=== PATIENT | female | born 1950 | race Caucasian/White ===

== ENCOUNTER 2016-10-18 10:44 | Emergency (ER) | payer MEDICARE, OTHER ==
[~2016-10-18] VITALS: Ht 167.6 cm; Wt 54.4 kg
[~2016-10-18 10:44] MED LIST: CAL-MAG TABLET1 EACH PO; CALCIUM600 M1 PO; CARDIZEM60 MG ORAL; CLOMIPRAMINE HC50 MG PO; COQ1050 MG PO; COSOPT EYE DROP10 M1 OP; DYMISTA NASAL S23 GM NS; HYDROZINE PO; LIPITOR20 MG ORAL; LOVAZA1 GM ORAL; METOPROLOL TART50 M1 ORAL; PAXIL20 MG ORAL; PRADAXA150 MG ORAL; PSYLLIUM0.4 GM PO; REMERON30 MG ORAL; TRAZODONE HCL100 MG ORAL; XALANTAN BOTH EYES
[2016-10-18 10:45] VITALS: BP 104/63
[2016-10-18] MEDS ORDERED: MULTIPLE VITAM1 EAC5 PO (10:46)
[2016-10-18] MEDS ORDERED: CO Q-10100 M1 PO (10:53)
[2016-10-18] MEDS ORDERED: PRADAXA150 MG ORAL (10:53)
[2016-10-18] MEDS ORDERED: DYMISTA NASAL S23 GM NS (10:54)
[2016-10-18] MEDS ORDERED: COSOPT PF EYE1 EAC1 OP (10:56)
[2016-10-18] MEDS ORDERED: METAMUCIL1 PK1 ORAL (10:58)
[2016-10-18] MEDS ORDERED: Morphine Sulfate 2mg/ml Inj IVP ONE (11:00)
[2016-10-18 11:07] LABS: BASOPHILS % (AUTO) 0.8 % (0.0-2.0); LYMPHOCYTES % (AUTO) 25.4 % (20.0-45.0); MEAN CORPUSCULAR HEMOGLOBIN 33.2 PG (27.0-31.0); MEAN CORPUSCULAR HGB CONC 35.1 G/DL (32.0-36.0); MEAN CORPUSCULAR VOLUME 95 FL (80-99); MEAN PLATELET VOLUME 5.9 FL (6.5-10.1); MONOCYTES % (AUTO) 8.6 % (1.0-10.0); NEUTROPHILS % (AUTO) 62.2 % (45.0-75.0); PLATELET COUNT 290 K/UL (150-450); RED CELL DISTRIBUTION WIDTH 11.1 % (11.6-14.8); WHITE BLOOD COUNT 7.5 K/UL (4.8-10.8)
--- NOTE | 2016-10-18 11:12 | Emergency Room Report ---
History of Present Illness General Chief Complaint: Multiple Trauma/Fall Source: Patient, EMS Present Illness HPI 66YOF BIBEMS with head trauma s/p ?syncope on street. Patient was on way to Psych clinic for appointment, doesnt know what happened. EMS found on street, brought in. EMS did NOT call ER so we were unable to inform them of CT being down. Patient c/o severe headache. Denies pain to neck, chest, abdomen, extremities. On Pradaxa for known Atrial fib. Took Cardizem this morning. Allergies: Coded Allergies: PENICILLINS (Verified Allergy, Mild, Rash, 08/08/16) NIACIN (Verified Allergy, Unknown, 08/08/16) UNABLE TO ASSESS (Unverified , 10/18/16) Patient History Past Medical History: psych hx, other - Atrial fibn Past Surgical History: none Pertinent Family History: none Social History: Denies: alcohol use, drug use, smoking Now: No Immunizations: UTD Reviewed Nursing Documentation: PMH: Agreed, PSxH: Agreed Nursing Documentation-PMH History Of Psychiatric Problem: Yes Review of Systems All Other Systems: negative except mentioned in HPI Physical Exam Vital Signs Date Time Temp Pulse Resp B/P Pulse Ox O2 Delivery O2 Flow Rate FiO2 10/18/16 10:29 80 18 171/109 98 Room Air Sp02 EP Interpretation: reviewed, abnormal General Appearance: normal inspection, well appearing, no apparent distress, alert, GCS 15, non-toxic, other - Face covered in dried blood Head: normocephalic, other - Abrasion to right nostril. Multiple abrasions to lower right lip. TTp to right lower jaw. Eyes: bilateral eye EOMI, bilateral eye PERRL ENT: normal ENT inspection, hearing grossly normal, normal voice Neck: normal inspection, full range of motion, supple, no bony tend Respiratory: normal inspection, lungs clear, normal breath sounds, no respiratory distress, no retraction, no wheezing Cardiovascular #1: no edema, tachycardia, irregularly irregular Gastrointestinal: normal inspection, normal bowel sounds, non tender, soft, no guarding, no hernia Genitourinary: no CVA tenderness Musculoskeletal: normal inspection, back normal, normal range of motion, Janes' s Sign negative Neurologic: normal inspection, alert, oriented x3, responsive, beverage manager III-XII nml as tested, motor strength/tone normal, speech normal Psychiatric: normal inspection, judgement/insight normal, mood/affect normal Skin: normal inspection, normal color, no rash Medical Decision Making Diagnostic Impression: Primary Impression: Facial trauma Qualified Codes: S09.93XA - Unspecified injury of face, initial encounter Additional Impressions: Syncope Qualified Codes: R55 - Syncope and collapse Atrial fibrillation with tachycardic ventricular rate CARLO (acute kidney injury) ER Course Head trauma - On pradaxa - VS notable for tachycardia, 110-120, Atria fib. Normotensive, 104/63. - ECG is Atrial fib with RVR to 110. No acute ischemia - Right nasal contusion, lower lip laceration - No focal neuro deficits - C/o severe headache - High risk for ICH. - Our CT is down for maintenance. We calldd [facility] but estimate time for transport >1 hour. - Call placed to [facility] for higher level of care transport at 11pm for URGENT CT - BP is stable - will NOT give additional BP lowering med at this time. - Spoke to Trauma Surgeon DR Head at 1125am. Agrees patient needs transfer to [facility] ER for CT and further evaluation. Patient remains stable in ED C-Collar placed Labs: No leuks. H&H stable. SerumCr 1.2 Troponin 0. CXR: no acute trauma Analgesia effective, headache less severe EKG Diagnostic Results Rate: tachycardiac Rhythm: other - atrial fib ST Segments: no acute changes ASA given to the pt in ED: No Rhythm Strip Diag. Results EP Interpretation: other - Atrial fib Rate: 110 Rhythm: other - Multiple PVCs Chest X-Ray Diagnostic Results Chest X-Ray Ordered: Yes # of Views/Limited/Complete: 1 View Interpretation: no consolidation, no effusion, no pneumothorax, no acute cardiopulmonary disease Indication: Chest Pain Impression: No acute disease Date Electronically Signed: Oct 18, 2016 Interpreting ER Physician: Eri Last Vital Signs Date Time Temp Pulse Resp B/P Pulse Ox O2 Delivery O2 Flow Rate FiO2 10/18/16 10:29 80 18 171/109 98 Room Air Status: improved Disposition: ADMITTED INPATIENT Condition: Critical Referrals: NOT CHOSEN IPA/,REFERRING (PCP) DARLENE ASHER M.D. Oct 18, 2016 11:12
[2016-10-18 11:16] LABS: TROPONIN I < 0.30 ng/mL (<=0.30)
[2016-10-18 11:20] LABS: ALBUMIN/GLOBULIN RATIO 1.8 (1.0-2.7); CALCIUM 9.2 mg/dL (8.6-10.2); CREATININE 1.2 mg/dL (0.5-0.9); GLOMERULAR FILTRATION RATE 45.1 mL/min (>60); POTASSIUM 3.8 mEQ/L (3.4-4.9); TOTAL PROTEIN 6.6 g/dL (6.6-8.7)
[2016-10-18 11:30] VITALS: BP 99/61
--- NOTE | 2016-10-18 11:32 | Diagnostic Imaging Report ---
Indication: Chest pain Technique: Single portable AP view of the chest. Findings: Comparison: None. Aortic arch mildly calcified. The bones and extra pulmonary soft tissues, remainder of the cardiomediastinal silhouette, pulmonary vasculature and parenchyma, and pleural surfaces are unremarkable. IMPRESSION: Aortosclerosis Otherwise negative portable AP chest.
[2016-10-18 11:40] LABS: CKMB 2.4 ng/mL (< 3.8)
[2016-10-18 12:00] VITALS: BP 92/58
== END 2016-10-18 12:38 | disposition short-term general hospital (02) ==
LOC: EDBD 10:44 → EMR 11:01
DX: S00.31XA Abrasion of nose, initial encounter (principal); S00.511A Abrasion of lip, initial encounter; W19.XXXA Unspecified fall, initial encounter; Y92.410 Unspecified street and highway as the place of occurrence of the external cause; I48.91 Unspecified atrial fibrillation; N17.9 Acute kidney failure, unspecified; R51 Headache; R55 Syncope and collapse; Z88.0 Allergy status to penicillin; Z88.8 Allergy status to other drugs, medicaments and biological substances; Z79.01 Long term (current) use of anticoagulants; I70.0 Atherosclerosis of aorta
CPT/HCPCS: 36415; 71010; 80053; 82550; 82553; 82962; 84484; 85025; 93005; 99285; J2270

== ENCOUNTER 2016-12-07 18:27 | Inpatient (IN) | payer MEDICARE, OTHER ==
[~2016-12-07] VITALS: Ht 170.2 cm; Wt 63.5 kg
[~2016-12-07 18:27] MED LIST changes: +CO Q-10100 M1 PO; +COSOPT PF EYE1 EAC1 OP; +METAMUCIL1 PK1 ORAL; +MULTIPLE VITAM1 EAC5 PO
[2016-12-07 18:38] VITALS: BP 101/58
[2016-12-07] MEDS ORDERED: PRADAXA150 MG ORAL (18:46)
[2016-12-07] MEDS ORDERED: KLONOPIN0.5 MG ORAL (18:46)
[2016-12-07] MEDS ORDERED: TOPIRAMATE25 MG ORAL (18:46)
[2016-12-07] MEDS ORDERED: TRAZODONE HCL100 MG ORAL (18:46)
[2016-12-07] MEDS ORDERED: ESTRACE42.5 GM PV (18:46)
[2016-12-07] MEDS ORDERED: FIBER-CAPS625 MG PO (18:46)
[2016-12-07] MEDS ORDERED: CYMBALTA30 MG ORAL (18:46)
[2016-12-07] MEDS ORDERED: UBIQUINOL100 MG PO (18:46)
[2016-12-07] MEDS ORDERED: ZYPREXA2.5 MG ORAL (18:46)
[2016-12-07] MEDS ORDERED: LATANOPROST2.5 ML BOTH EYES (18:46)
[2016-12-07] MEDS ORDERED: LOVAZA1 GM ORAL (18:46)
[2016-12-07] MEDS ORDERED: MELATONIN1 M2 PO (18:46)
--- NOTE | 2016-12-07 18:53 | Emergency Room Report ---
History of Present Illness General Chief Complaint: General Complaint Source: Patient, EMS Present Illness HPI Pt. presents with weakness and unsteadiness on her feet. She's fallen 2 days ago. She hit her chin on the right-hand side. She claims that she was evaluated at [facility] and given an ice pack and tranquilizers at that time. 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 The patient is chronically on medications and states that she's taking both Percocet and Allyn. She states Allyn does not help at this time. She was hospitalized at [facility] from last Saturday till till Saturday which is before the most recent fall. The patient is on pradaxa treating her for atrial fibrillation. She has had episodes of rapid a fib. Last here, she converted to NSR with diltiazem. No palpitations. Patient states that she is not seeing a pain management doctor. Review of records from [facility]. Admitted for same issue with MRI and psych consult. Zyprexa was added. Had been treated with clonazepam and cymbalta and these were continued. CT and MRI done at [facility]. Transgender post male to female surgery. Depression post this. Seen in outpatient psych at [facility]. Allergies: Coded Allergies: PENICILLINS (Verified Allergy, Mild, Rash, 08/08/16) NIACIN (Verified Allergy, Unknown, 08/08/16) Patient History Past Medical History: see triage record Past Surgical History: other - transgender male to female Social History: Denies: smoking Social History Narrative at home with dog Reviewed Nursing Documentation: PMH: Agreed, PSxH: Agreed Nursing Documentation-PM Past Medical History: No Stated History Hx Cardiac Problems: Yes - A-fib Hx Hypertension: Yes History Of Psychiatric Problem: Yes - anxiety Physical Exam Vital Signs Date Time Temp Pulse Resp B/P Pulse Ox O2 Delivery O2 Flow Rate FiO2 12/07/16 18:26 97.7 70 16 91/54 97 12/07/16 18:38 Room Air Medical Decision Making Diagnostic Impression: Primary Impression: Closed head injury Qualified Codes: S09.90XA - Unspecified injury of head, initial encounter Additional Impressions: Anticoagulation management encounter Depression Qualified Codes: F32.9 - Major depressive disorder, single episode, unspecified Polypharmacy ER Course Patient presents with weakness and unsteady gaits. The fact that she's on anticoagulation at this time she needs to have a CT head, EKG, labs and chest x- ray. She's on pain medication at this time and acetaminophen level needs to be checked as she is doubling on percoet and norco. She appears dehydrated and will receive IV hydration. This is an extremely complex patient who might require observation. The fact she is on Pradaxa makes observation more important as there is a possibility for bleed. Labs unremarkable (negative acetaminophen, tox - would expect + opiates and benzos) Based on CT difference with prior films at [facility], presented to [facility]. (Query fx, and air in cavernous sinus.) Discussed with Dr. Mueller, neurointensivist at [facility] who recommends observation. Feels not neurosurgical problem. Admit tele Dr. Clinton. Request consult with Dr. La.. Laboratory Tests Test 12/07/16 19:30 White Blood Count 5.1 K/UL (4.8-10.8) Red Blood Count 3.70 M/UL (4.20-5.40) L Hemoglobin 12.4 G/DL (12.0-16.0) Hematocrit 33.9 % (37.0-47.0) L Mean Corpuscular Volume 92 FL (80-99) Mean Corpuscular Hemoglobin 33.6 PG (27.0-31.0) H Mean Corpuscular Hemoglobin Concent 36.6 G/DL (32.0-36.0) H Red Cell Distribution Width 11.0 % (11.6-14.8) L Platelet Count 219 K/UL (150-450) Mean Platelet Volume 5.7 FL (6.5-10.1) L Neutrophils (%) (Auto) 54.3 % (45.0-75.0) Lymphocytes (%) (Auto) 32.0 % (20.0-45.0) Monocytes (%) (Auto) 9.5 % (1.0-10.0) Eosinophils (%) (Auto) 2.9 % (0.0-3.0) Basophils (%) (Auto) 1.3 % (0.0-2.0) Prothrombin Time 10.3 SEC (9.30-11.50) Prothrombin Time INR 1.0 (0.9-1.1) PTT 26 SEC (23-33) Urine Color Pale yellow Urine Appearance Slightly cloudy Urine pH 7 (4.5-8.0) Urine Specific [place] 1.015 (1.005-1.035) Urine Protein Negative (NEGATIVE) Urine Glucose (UA) Negative (NEGATIVE) Urine Ketones Negative (NEGATIVE) Urine Occult Blood Negative (NEGATIVE) Urine Nitrite Negative (NEGATIVE) Urine Bilirubin Negative (NEGATIVE) Urine Urobilinogen Normal MG/DL (0.0-1.0) Urine Leukocyte Esterase 1+ (NEGATIVE) H Urine RBC 0-2 /HPF (0 - 2) Urine WBC 2-4 /HPF (0 - 2) Urine Squamous Epithelial Cells Few /LPF (NONE/OCC) Urine Bacteria Few /HPF (NONE) Sodium Level 141 mEQ/L (135-145) Potassium Level 3.8 mEQ/L (3.4-4.9) Chloride Level 106 mEQ/L (98-107) Carbon Dioxide Level 27 mEQ/L (20-30) Anion Gap 8 (5-15) Blood Urea Nitrogen 13 mg/dL (7-23) Creatinine 1.0 mg/dL (0.5-0.9) H Estimate Glomerular Filtration Rate 55.7 mL/min (>60) Glucose Level 81 mg/dL (74-106) Calcium Level 8.7 mg/dL (8.6-10.2) Total Bilirubin 0.3 mg/dL (0.0-1.2) Aspartate Amino Transferase (AST) 21 U/L (5-40) Alanine Aminotransferase (ALT) 16 U/L (3-33) Alkaline Phosphatase 35 U/L (35-104) Total Creatine Kinase 50 U/L (26-140) Troponin I < 0.30 ng/mL (<=0.30) Total Protein 5.9 g/dL (6.6-8.7) L Albumin 3.7 g/dL (3.5-5.2) Globulin 2.2 g/dL Albumin/Globulin Ratio 1.6 (1.0-2.7) Urine Opiates Screen Negative (NEGATIVE) Acetaminophen Level < 10 ug/mL (10-30) L Urine Barbiturates Screen Negative (NEGATIVE) Phencyclidine (PCP) Screen Negative (NEGATIVE) Urine Amphetamines Screen Negative (NEGATIVE) Urine Benzodiazepines Screen Negative (NEGATIVE) Urine Cocaine Screen Negative (NEGATIVE) Urine Marijuana (THC) Screen Negative (NEGATIVE) EKG Diagnostic Results Rate: normal Rhythm: NSR ST Segments: no acute changes Rhythm Strip Diag. Results EP Interpretation: yes Rhythm: NSR, no PVC's, no ectopy Chest X-Ray Diagnostic Results Chest X-Ray Diagnostic Results : Chest X-Ray Ordered: Yes # of Views/Limited/Complete: 1 View Indication: Other EP Interpretation: Yes Interpretation: no consolidation, no effusion, no pneumothorax, no acute cardiopulmonary disease Impression: No acute disease Interpreting ER Provider: Electronically signed by Anthony Figueroa MD CT/MRI/US Diagnostic Results CT/MRI/US Diagnostic Results : Imaging Test Ordered: head Impression R frontal injury and air in cavernous sinus (felt to be from venipuncture). Last Vital Signs Date Time Temp Pulse Resp B/P Pulse Ox O2 Delivery O2 Flow Rate FiO2 12/08/16 01:35 97.0 55 18 108/83 97 Room Air Status: improved Disposition: ADMITTED INPATIENT Condition: Serious Anthony Figueroa M.D. Dec 07, 2016 18:53
[2016-12-07 20:08] LABS: BASOPHILS % (AUTO) 1.3 % (0.0-2.0); EOSINOPHILS % (AUTO) 2.9 % (0.0-3.0); MEAN CORPUSCULAR HEMOGLOBIN 33.6 PG (27.0-31.0); MEAN CORPUSCULAR HGB CONC 36.6 G/DL (32.0-36.0); MEAN CORPUSCULAR VOLUME 92 FL (80-99); MEAN PLATELET VOLUME 5.7 FL (6.5-10.1); MONOCYTES % (AUTO) 9.5 % (1.0-10.0); NEUTROPHILS % (AUTO) 54.3 % (45.0-75.0); PLATELET COUNT 219 K/UL (150-450); TROPONIN I < 0.30 ng/mL (<=0.30); WHITE BLOOD COUNT 5.1 K/UL (4.8-10.8)
[2016-12-07 20:11] LABS: ALANINE AMINOTRANSFERASE 16 U/L (3-33); ALBUMIN/GLOBULIN RATIO 1.6 (1.0-2.7); ANION GAP 8 (5-15); APPEARANCE,URINE SLIGHTLY CLOUDY; ASPARTATE AMINO TRANSFERASE 21 U/L (5-40); CALCIUM 8.7 mg/dL (8.6-10.2); CARBON DIOXIDE 27 mEQ/L (20-30); CHLORIDE 106 mEQ/L (98-107); GLOMERULAR FILTRATION RATE 55.7 mL/min (>60); HEMOLYSIS 6; KETONES,URINE NEGATIVE (NEGATIVE); LEUKOCYTE ESTERASE ,URINE 1+ (NEGATIVE); NITRITE,URINE NEGATIVE (NEGATIVE); PH,URINE 7 (4.5-8.0); POTASSIUM 3.8 mEQ/L (3.4-4.9); PROTEIN,URINE NEGATIVE (NEGATIVE); SODIUM 141 mEQ/L (135-145); TOTAL PROTEIN 5.9 g/dL (6.6-8.7); UROBILINOGEN,URINE NORMAL MG/DL (0.0-1.0)
[2016-12-07 20:13] LABS: PROTHROMBIN TIME 10.3 SEC (9.30-11.50)
[2016-12-07 20:38] VITALS: BP 125/65
[2016-12-07 20:45] LABS: BACTERIA,URINE FEW /HPF; RBC,URINE 0-2 /HPF (0 - 2); SQUAMOUS EPITHELIAL CELL,UR FEW /LPF (NONE/OCC)
[2016-12-07 22:38] VITALS: BP 108/61
[2016-12-08] VITALS (7 sets, daily range): BP systolic 108–144; BP diastolic 60–83
[2016-12-08] MEDS ORDERED: ATORVASTATIN CA20 MG ORAL (02:27)
[2016-12-08] MEDS ORDERED: Zolpidem 5mg tab ORAL PRN (04:00)
[2016-12-08] MEDS ORDERED: TOPROL XL50 MG ORAL (05:13)
[2016-12-08] MEDS: clonazePAM 0.5mg tab ORAL SCH ×2 (08:58→21:07)
[2016-12-08] MEDS: DULoxetine 30mg cap ORAL SCH ×2 (08:58→21:06)
[2016-12-08] MEDS: Multivitamin w/Minerals tab ORAL SCH ×2 (08:58→17:17)
[2016-12-08] MEDS: Tums 500mg ORAL SCH ×2 (08:59→17:17)
[2016-12-08] MEDS: Cosopt Opth Soln 10 mL Btl BOTH EYES SCH ×2 (08:59→21:26)
[2016-12-08] MEDS: Metamucil Pkt ORAL SCH ×2 (08:59→17:17)
[2016-12-08] MEDS ORDERED: Metoprolol Succinate XL 50mg tab ORAL SCH (09:00)
[2016-12-08] MEDS ORDERED: Metoprolol Tartrate 50mg tab ORAL SCH (09:00)
[2016-12-08] MEDS: Topiramate 25mg tab ORAL SCH ×2 (09:04→21:06)
--- NOTE | 2016-12-08 11:16 | Diagnostic Imaging Report ---
Indication: Headache. Head trauma Technique: Contiguous 5 mm thick transaxial imaging of the head obtained in a Siemens Sensation [address] scanner. Soft tissue and bone windows generated. Total Dose length Product (DLP): [address] Dose Index Volume (CTDIvol): 70.38 mGy Comparison: none Findings: There is mild prominence of the ventricles, basal cisterns, and cerebral sulci consistent with atrophy. Mild, nonspecific, white matter hypoattenuation is noted throughout the brain consistent with chronic small vessel disease. There is no midline shift, edema, acute hemorrhage, mass effect, or abnormal extra-axial fluid collections. There are bilateral fractures of the frontal process of maxillary bone. This could be old. Please correlate clinically. There appears to have been surgery involving the area of the frontal sinus. Impression: No acute intracranial bleed, mass effect or edema. Mild atrophy of the brain. Nonspecific white matter hypoattenuation probably due to chronic small vessel disease. Fractures of the frontal process of the maxilla. Acuity indeterminate. Status post previous left frontal sinus surgery The CT scanner at [facility] is accredited by the [employer] and the scans are performed using dose optimization techniques as appropriate to a performed exam including Automatic Exposure control.
--- NOTE | 2016-12-08 11:41 | Diagnostic Imaging Report ---
Indication: Dyspnea Comparison: 10/18/16 A single view chest radiograph was obtained. Findings: Heart size is normal. Lungs are clear. Bones are unremarkable. Impression: No acute findings
[2016-12-08] MEDS: OLANZapine 2.5mg tab ORAL PRN (11:53)
--- NOTE | 2016-12-08 13:49 | Neurology Progress Note ---
Objective Physical Exam Last Vital Signs Date Time Temp Pulse Resp B/P Pulse Ox O2 Delivery O2 Flow Rate FiO2 12/08/16 12:11 66 12/08/16 11:58 98.0 17 117/74 98 Room Air Laboratory Tests Test 12/07/16 19:30 White Blood Count 5.1 K/UL (4.8-10.8) Red Blood Count 3.70 M/UL (4.20-5.40) L Hemoglobin 12.4 G/DL (12.0-16.0) Hematocrit 33.9 % (37.0-47.0) L Mean Corpuscular Volume 92 FL (80-99) Mean Corpuscular Hemoglobin 33.6 PG (27.0-31.0) H Mean Corpuscular Hemoglobin Concent 36.6 G/DL (32.0-36.0) H Red Cell Distribution Width 11.0 % (11.6-14.8) L Platelet Count 219 K/UL (150-450) Mean Platelet Volume 5.7 FL (6.5-10.1) L Neutrophils (%) (Auto) 54.3 % (45.0-75.0) Lymphocytes (%) (Auto) 32.0 % (20.0-45.0) Monocytes (%) (Auto) 9.5 % (1.0-10.0) Eosinophils (%) (Auto) 2.9 % (0.0-3.0) Basophils (%) (Auto) 1.3 % (0.0-2.0) Prothrombin Time 10.3 SEC (9.30-11.50) Prothromb Time International Ratio 1.0 (0.9-1.1) Activated Partial Thromboplast Time 26 SEC (23-33) Urine Color Pale yellow Urine Appearance Slightly cloudy Urine pH 7 (4.5-8.0) Urine Specific [place] 1.015 (1.005-1.035) Urine Protein Negative (NEGATIVE) Urine Glucose (UA) Negative (NEGATIVE) Urine Ketones Negative (NEGATIVE) Urine Occult Blood Negative (NEGATIVE) Urine Nitrite Negative (NEGATIVE) Urine Bilirubin Negative (NEGATIVE) Urine Urobilinogen Normal MG/DL (0.0-1.0) Urine Leukocyte Esterase 1+ (NEGATIVE) H Urine RBC 0-2 /HPF (0 - 2) Urine WBC 2-4 /HPF (0 - 2) Urine Squamous Epithelial Cells Few /LPF (NONE/OCC) Urine Bacteria Few /HPF (NONE) Sodium Level 141 mEQ/L (135-145) Potassium Level 3.8 mEQ/L (3.4-4.9) Chloride Level 106 mEQ/L (98-107) Carbon Dioxide Level 27 mEQ/L (20-30) Anion Gap 8 (5-15) Blood Urea Nitrogen 13 mg/dL (7-23) Creatinine 1.0 mg/dL (0.5-0.9) H Estimat Glomerular Filtration Rate 55.7 mL/min (>60) Glucose Level 81 mg/dL (74-106) Calcium Level 8.7 mg/dL (8.6-10.2) Total Bilirubin 0.3 mg/dL (0.0-1.2) Aspartate Amino Transf (AST/SGOT) 21 U/L (5-40) Alanine Aminotransferase (ALT/SGPT) 16 U/L (3-33) Alkaline Phosphatase 35 U/L (35-104) Total Creatine Kinase 50 U/L (26-140) Troponin I < 0.30 ng/mL (<=0.30) Total Protein 5.9 g/dL (6.6-8.7) L Albumin 3.7 g/dL (3.5-5.2) Globulin 2.2 g/dL Albumin/Globulin Ratio 1.6 (1.0-2.7) Urine Opiates Screen Negative (NEGATIVE) Acetaminophen Level < 10 ug/mL (10-30) L Urine Barbiturates Screen Negative (NEGATIVE) Phencyclidine (PCP) Screen Negative (NEGATIVE) Urine Amphetamines Screen Negative (NEGATIVE) Urine Benzodiazepines Screen Negative (NEGATIVE) Urine Cocaine Screen Negative (NEGATIVE) Urine Marijuana (THC) Screen Negative (NEGATIVE) Impression/Recommendations Problems: (1) Transient global amnesia LALO ALEXANDER Dec 08, 2016 13:49
[2016-12-08] MEDS ORDERED: Norco 5mg/325mg tab ORAL PRN (14:45)
[2016-12-08] MEDS: Norco 5mg/325mg tab ORAL PRN (15:13)
[2016-12-08] MEDS: TraZODone 100mg tab ORAL SCH (21:16)
[2016-12-09] MEDS: Norco 5mg/325mg tab ORAL PRN ×5 (01:34→21:09)
--- NOTE | 2016-12-09 02:17 | Consultation ---
DATE OF CONSULTATION: 12/08/2016 NEUROLOGICAL CONSULTATION REQUESTING PHYSICIAN: Elias Clinton M.D. HISTORY OF PRESENT ILLNESS: This is a 66-year-old female, seen in neurological consultation to evaluate an episode of transient change in mental status. The patient informed me that yesterday she was at home, was feeling fairly well, took some medication "for her nerves" following which she had no recollection of what happened. She woke up being at [facility]. The patient indicated she apparently called [employer], who brought her to this facility. Upon awakening, she was surprised what happened, but was feeling fairly well as usual, still with mild headache and dizziness. The patient recalled having three similar episodes within the last few months, the most recent episode was couple of weeks ago. She recalled walking on the street, was losing her balance and falling down, but she has no recollection of what happened after that until she woke up at [facility]. According to available medical records, on 11/29/2016, she was brought in by paramedics from the street where bystanders noted for having difficulty ambulation, she was alert to herself, but confused about the year. Her gait described by people who knew her as "no more shaky." This appeared to be worsened. She was weak and paramedics noted some right facial droop. Her blood sugar was 145. There was no further neurological deficit detected. On initial evaluation at [facility], she was disoriented, did not know where she was, did not now what the month or year. She thought that she was in [place] and she had no idea how she got to the hospital and why she was there. Reportedly, her urine toxicology was negative. Her TSH, B12, folate, and vitamin D were normal. Her recent stress echocardiogram with no evidence of ischemia, but urine culture demonstrated growth of Enterococcus, which could have been contamination, but she was treated with Macrobid for 7 days. There was episode of atrial fibrillation, she received diltiazem 10 mg IV push with complete resolution. Reported MRI of the brain was negative. The patient was placed on her home dose of trazodone 300 mg at bedtime. She was on Topamax, Cymbalta increased up to 30 mg b.i.d., trial of Zyprexa was not effective and the patient was placed back on clonazepam 0.5 b.i.d. per Psychiatry recommendation. Gradually she improved and her encephalopathy was completely clear. Following current admission, CAT scan of the brain was obtained revealing mild atrophy of the brain, nonspecific white matter hypoattenuation, fracture of the frontal process of the maxilla, undetermined acuteness and previous left frontal sinus surgery. Her chest x-ray, no acute findings. Laboratory work included mild anemia, hemoglobin 12.4 and hematocrit 33.9. Elevated MCV and MCH. Normal coagulation panel. Normal urinalysis. Toxicology panel negative. Chemistry panel unremarkable except creatinine 1.0 and total protein 5.9. There was no further changes in level of consciousness since admission detected. Her vital signs remained stable. PAST MEDICAL HISTORY: The patient has extensive medical history. This includes history of migraine headaches. She is status post a gender reassignment surgery few years ago changing from male to female. History of drug-induced tardive dyskinesia, parkinsonian symptomatology, long-standing major depression, anxiety, recurrent atrial fibrillation, and hyperlipidemia. Her primary physician is Dr. Chester Mendoza. She is being seen by inpatient Psychiatry. MEDICATIONS: Treatment list prior to admission included atorvastatin, imipramine, Klonopin 0.5 b.i.d., Pradaxa, diltiazem, Cymbalta 30 mg b.i.d., , melatonin, metoprolol, Remeron 20 mg at bedtime, Zyprexa 2.5 mg q.6 h. p.r.n., omega-3, Paxil 10 mg daily, trazodone 250 mg daily, CoQ10. ALLERGIES: Penicillin, niacin. FAMILY HISTORY: Noncontributory. SOCIAL HISTORY: Worked previously as a publisher. Denies alcohol or drug abuse. Nonsmoker. FAMILY HISTORY: Noncontributory. REVIEW OF SYSTEMS: The patient complains of generalized weakness. She was feeling cough and dizzy, dull headaches. She is concerned with presence of amnestic episodes. She denies previous seizure activity. PHYSICAL EXAMINATION: GENERAL: This is a well-developed and well-nourished pleasant lady, who appears to be depressed. VITAL SIGNS: Her vital signs are now stable. Blood pressure 115/80, respirations 14, and temperature 98.1 degrees. HEENT: Head, normocephalic. There is no evidence of trauma. Eyes, ears, and throat are clear. NECK: Supple. No meningeal signs. MUSCULOSKELETAL: Unremarkable. No deformities. Peripheral pulses 1+ and symmetric. MENTAL STATUS: The patient is alert. She is fully oriented. Speech is fluent. Language intact. There is no aphasia. No apraxia. Her responses are slow. Mood depressed. CRANIAL NERVE II: Pupils both responding to light and accommodation. Extraocular movements intact. No nystagmus. CRANIAL NERVE V: Normal corneal responses. CRANIAL NERVE VII: No facial asymmetry. CRANIAL NERVE VIII: Normal hearing. CRANIAL NERVES IX THROUGH XII: Tongue is in midline. Symmetric palate elevation. MOTOR EXAMINATION: Revealed normal muscle tone. Strength is 5/5. Minor resting tremor noted. GAIT: Wobbly. IMPRESSION: 1. Recurrent amnestic episodes, most likely representing global transient amnesia. Rule out toxic encephalopathy secondary to polypharmacy, rule out dissociated state, rule out seizure disorder. 2. Major depression and anxiety. 3. Paroxysmal atrial fibrillation. 4. Hyperlipidemia. 5. History of tardive dyskinesia. RECOMMENDATION: 1. Check EEG. 2. Review all medications to hold unessential (the patient on several antidepressants), although the patient indicated that she feels much better when she takes [place]. 3. Re-evaluation by Psychiatry. 4. Observe for any paroxysmal events. 5. No driving. 6. The patient being prepared for transfer to [facility] for further assessment by her treating physician. Thank you for allowing me to see this interesting patient in neurological consultation. Kevin Rogers M.D. DR: JORGE JOB#: [id number] CC:
--- NOTE | 2016-12-09 03:16 | History and Physical Report ---
DATE OF ADMISSION: 12/07/2016 REASON FOR ADMISSION: Head injury. HISTORY OF PRESENT ILLNESS: This is a 66-year-old female who presented with weakness and tenderness in her feet. The patient had fallen two days ago. The patient apparently hit her chin on the right side. She was evaluated in the [facility] at that time and noted to have some ataxia. The patient is chronically on medications. She does take both Flexeril and [place] for pain relief. She was hospitalized at [facility] due to her recent fall. The patient also is on Pradaxa for her atrial fibrillation. The patient's care discussed and reviewed and she is now been admitted after head injury. The patient is currently comfortable and nonfocal. PAST MEDICAL HISTORY: As above. History of atrial fibrillation and anxiety. PAST SURGICAL HISTORY: Transgender male to female. MEDICATIONS: Reviewed. ALLERGIES: Reviewed. REVIEW OF SYSTEMS: Notable for chronic pain syndrome, chronic opioid use, status post fall as described above. PHYSICAL EXAMINATION: GENERAL: A well-developed female. VITAL SIGNS: Blood pressure 139/77, pulse 61, respirations 18, and saturation is 98%. The patient's temperature is 97. HEENT: Negative. Extraocular movements are grossly intact. Oropharynx otherwise clear. NECK: Supple. LUNGS: Otherwise clear. No rhonchi or wheezes. CARDIAC: Normal S1 and S2. Regular rate and rhythm without murmurs, rubs, or gallops. ABDOMEN: Soft, nontender, and nondistended. EXTREMITIES: No cyanosis, clubbing, or edema. NEUROLOGIC: The patient is grossly nonfocal. The patient with unsteady gait. LABORATORY DATA: Reviewed. White count 5.1, hemoglobin 12, hematocrit 33, and platelets are 219,000. Chemistry is fairly normal, all reviewed in detail. Imaging noted and apparently are otherwise unchanged. IMPRESSION: 1. Status post fall with head injury. 2. Ataxic gait. 3. Chronic opioid dependence. 4. Hypertension. 5. Atrial fibrillation per history paroxysmal. RECOMMENDATIONS: Supportive care. OT and PT. Neurosurgical evaluation. Monitor use of opioids at present. Discharge if clinically stable, able to go home and consider home health while on physical therapy. Elias Clinton M.D. DR: HILDA JOB#: [id number] CC: LEVON
[2016-12-09 03:52] VITALS: BP 102/59
[2016-12-09 07:12] LABS: BASOPHILS % (AUTO) 1.2 % (0.0-2.0); EOSINOPHILS % (AUTO) 3.7 % (0.0-3.0); LYMPHOCYTES % (AUTO) 34.1 % (20.0-45.0); MEAN CORPUSCULAR HEMOGLOBIN 32.7 PG (27.0-31.0); MEAN CORPUSCULAR HGB CONC 34.7 G/DL (32.0-36.0); MEAN CORPUSCULAR VOLUME 94 FL (80-99); MEAN PLATELET VOLUME 6.1 FL (6.5-10.1); MONOCYTES % (AUTO) 8.5 % (1.0-10.0); NEUTROPHILS % (AUTO) 52.5 % (45.0-75.0); PLATELET COUNT 224 K/UL (150-450); RED BLOOD COUNT 3.86 M/UL (4.20-5.40); RED CELL DISTRIBUTION WIDTH 10.7 % (11.6-14.8); WHITE BLOOD COUNT 6.4 K/UL (4.8-10.8)
[2016-12-09 07:18] LABS: THYROID STIMULATING HORMONE 1.95 uIU/mL (0.300-4.500)
[2016-12-09 07:19] LABS: ALBUMIN/GLOBULIN RATIO 1.8 (1.0-2.7); GLOMERULAR FILTRATION RATE 55.7 mL/min (>60); POTASSIUM 3.9 mEQ/L (3.4-4.9); TOTAL PROTEIN 5.6 g/dL (6.6-8.7)
[2016-12-09 07:29] VITALS: BP 131/78
--- NOTE | 2016-12-09 07:30 | Consultation ---
DATE OF CONSULTATION: 12/08/2016 CARDIOLOGY CONSULTATION: CONSULTING PHYSICIAN: Anthony Munguia M.D. REQUESTING PHYSICIAN: Elias Clinton M.D. REASON FOR CONSULTATION: Bradycardia. HISTORY OF PRESENT ILLNESS: This 66-year-old transgender female with a history of paroxysmal atrial fibrillation, has had episodes of bradyarrhythmias since admission late last evening. The patient states that she was admitted to the hospital after apparently passing out and having no recollection of the event. She has had several falls as well with associated loss of consciousness over the past month. She lost her balance and fell down on one occasion and has no recollection of falls on other occasion. She was hospitalized at [facility] in November with atrial fibrillation and started on antiarrhythmics. Her workup also included a stress echo that was negative. Her B12, folate, vitamin D, and TSH levels were normal and she has been on anticoagulation since the atrial fibrillation. PAST MEDICAL HISTORY: Transgender, glaucoma, migraines, depression, history of neuroleptic use with secondary dyskinesia and parkinsonism, paroxysmal atrial fibrillation, and hyperlipidemia. MEDICATIONS: Prior to admission, reviewed and reconciled. ALLERGIES: Penicillin and niacin. FAMILY HISTORY: Noncontributory. SOCIAL HISTORY: Negative for smoking, alcohol, or substance abuse. REVIEW OF SYSTEMS: A 10-point review of systems performed. All systems negative other than noted above. PHYSICAL EXAMINATION: GENERAL: Female in appearance, in no acute distress. VITAL SIGNS: Blood pressure is 115/80, heart rate 54, respiratory rate 14, and afebrile. Monitor reveals sinus arrhythmias and sinus bradycardia. HEENT: Conjunctivae are pink. Oropharynx is clear. NECK: Supple. . No carotid sinus hypersensitivity. LUNGS: Clear. CARDIAC: Regular rhythm and rate. Normal S1 and S2. ABDOMEN: Soft. EXTREMITIES: No edema. NEUROLOGIC: Symmetric strength. DIAGNOSTIC DATA: EKG, sinus arrhythmia. LABORATORY DATA: Laboratories reviewed. IMPRESSION: 1. Recurring falls, probable syncope. 2. Bradyarrhythmias. 3. Paroxysmal atrial fibrillation. 4. Hyperlipidemia. 5. History of major depression. 6. History of tardive dyskinesias. PLAN: 1. Discontinue diltiazem. 2. Titrate metoprolol. 3. Continue cardiac monitoring. 4. Seizure precautions. 5. Neuro consult reviewed. 6. Agree with EEG. 7. Continue cardioembolic prophylaxis at this time with Pradaxa. 8. Follow up chemistry panel and repeat thyroid function. Anthony Munguia M.D. DR: Gela JOB#: [id number] CC:
[2016-12-09] MEDS: Cosopt Opth Soln 10 mL Btl BOTH EYES SCH ×2 (08:11→20:23)
[2016-12-09] MEDS: DULoxetine 30mg cap ORAL SCH ×2 (08:11→20:18)
[2016-12-09] MEDS: Multivitamin w/Minerals tab ORAL SCH ×2 (08:11→17:53)
[2016-12-09] MEDS: Metamucil Pkt ORAL SCH ×2 (08:11→17:52)
[2016-12-09] MEDS: clonazePAM 0.5mg tab ORAL SCH ×2 (08:11→20:19)
[2016-12-09] MEDS: Tums 500mg ORAL SCH ×2 (08:14→17:53)
[2016-12-09] MEDS: Topiramate 25mg tab ORAL SCH ×2 (08:14→20:19)
--- NOTE | 2016-12-09 08:20 | General Progress Note ---
Assessment/Plan Assessment/Plan IMPRESSION: 1. Status post fall with head injury. 2. Ataxic gait. 3. Chronic opioid dependence. 4. Hypertension. 5. Atrial fibrillation per history paroxysmal. 6. amnestic episodes 7. possible toxic metabolic encephalopathy PLAN care as is EEG per cards, abby burton family wants transfer to [facility] under the Care of Dr. Arreaga, he is aware and will arrange impression, plan, and exam edited and reviewed in detail care discussed with RN Subjective Allergies: Coded Allergies: PENICILLINS (Verified Allergy, Mild, Rash, 12/08/16) NIACIN (Verified Allergy, Unknown, 12/08/16) Subjective neuro and cards appreciated findings noted appreciate follow up Objective Last 24 Hour Vital Signs Date Time Temp Pulse Resp B/P Pulse Ox O2 Delivery O2 Flow Rate FiO2 12/09/16 08:15 56 131/78 12/09/16 07:29 97.3 56 18 131/78 96 Room Air 12/09/16 04:00 54 12/09/16 03:52 98.8 57 18 102/59 93 Room Air 12/09/16 00:00 54 12/08/16 23:51 98.6 60 19 111/60 94 Room Air 12/08/16 20:13 48 12/08/16 19:59 98.2 58 18 108/65 96 Room Air 12/08/16 15:38 61 12/08/16 15:30 59 124/74 12/08/16 15:30 97.7 59 20 124/74 97 Room Air 12/08/16 12:11 66 12/08/16 11:58 98.0 58 17 117/74 98 Room Air 12/08/16 08:59 61 139/77 12/08/16 08:58 61 139/77 Intake and Output 12/08/16 12/09/16 19:00 07:00 Intake Total 1920 ml 1203 ml Output Total 800 ml Balance 1120 ml 1203 ml Intake Oral 560 ml IV Total 1360 ml 1203 ml Output Urine Total 800 ml # Voids 3 Laboratory Tests 12/09/16 05:15: White Blood Count 6.4, Red Blood Count 3.86L, Hemoglobin 12.6, Hematocrit 36.3L , Mean Corpuscular Volume 94, Mean Corpuscular Hemoglobin 32.7H, Mean Corpuscular Hemoglobin Concent 34.7, Red Cell Distribution Width 10.7L, Platelet Count 224, Mean Platelet Volume 6.1L, Neutrophils (%) (Auto) 52.5, Lymphocytes (%) (Auto) 34.1, Monocytes (%) (Auto) 8.5, Eosinophils (%) (Auto) 3.7H, Basophils (%) (Auto) 1.2, Sodium Level 141, Potassium Level 3.9, Chloride Level 108H, Carbon Dioxide Level 26, Anion Gap 7, Blood Urea Nitrogen 9, Creatinine 1.0H, Estimat Glomerular Filtration Rate 55.7, Glucose Level 94, Calcium Level 9.0, Total Bilirubin 0.3, Aspartate Amino Transf (AST/SGOT) 18, Alanine Aminotransferase (ALT/SGPT) 14, Alkaline Phosphatase 34L, Pro-B-Type Natriuretic Peptide 81, Total Protein 5.6L, Albumin 3.6, Globulin 2.0, Albumin/ Globulin Ratio 1.8, Thyroid Stimulating Hormone (TSH) 1.950 Height (Feet): 5 Height (Inches): 7.00 Weight (Pounds): 140 Objective GENERAL: A well-developed female. NAD, wants to go home HEENT: Negative. Extraocular movements are grossly intact. Oropharynx otherwise clear. NECK: Supple. LUNGS: Otherwise clear. No rhonchi or wheezes. CARDIAC: Normal S1 and S2. Regular rate and rhythm without murmurs, rubs, or gallops. ABDOMEN: Soft, nontender, and nondistended. EXTREMITIES: No cyanosis, clubbing, or edema. NEUROLOGIC: The patient is grossly nonfocal. The patient with unsteady gait. GUERA ANDREWS Dec 09, 2016 08:20
[2016-12-09] MEDS ORDERED: Zolpidem 5mg tab ORAL PRN (08:45)
[2016-12-09] MEDS ORDERED: Metoprolol Succinate XL 50mg tab ORAL SCH (09:00)
[2016-12-09] MEDS: Dabigatran 150mg cap ORAL SCH ×2 (10:27→20:18)
[2016-12-09 11:30] VITALS: BP 136/77
[2016-12-09 15:29] VITALS: BP 126/73
[2016-12-09] MEDS: Bisacodyl EC 5mg tab ORAL SCH (16:56)
--- NOTE | 2016-12-09 17:11 | Cardiology Report ---
APPROVED REPORT EXAM: Two-dimensional and M-mode echocardiogram with Doppler and color Doppler. INDICATION Bradycardia M-Mode DIMENSIONS IVSd0.7 (0.7-1.1cm)Left Atrium (MM)3.7 (1.6-4.0cm) LVDd4.2 (3.5-5.6cm)Aortic Root2.8 (2.0-3.7cm) PWd0.8 (0.7-1.1cm)Aortic Cusp Exc.1.6 (1.5-2.0cm) LVDs2.5 (2.5-4.0cm) PWs0.8 cm Normal left ventricular chamber size, systolic function and wall motion. Left ventricular ejection fraction estimated to be 60-65%. No evidence of left ventricular hypertrophy. No evidence of pericardial fat or effusion. All other cardiac chamber sizes are within normal limits. Focal aortic valve sclerosis with adequate cusp excursion Thickened mitral valve leaflets with normal excursion. Mitral annulus and aortic root calcification. Pulmonic valve not well visualized. Normal tricuspid valve structure. IVC is normal in size with physiologic collapse. A color flow and spectral Doppler study was performed and revealed: No aortic regurgitation. Trace mitral regurgitation. Left ventricular diastolic dysfunction grade 1. Mild tricuspid regurgitation. Tricuspid systolic velocities suggests peak right ventricular systolic pressure of 33 mmHg
--- NOTE | 2016-12-09 17:52 | Cardiology Report ---
APPROVED REPORT EKG Measurement Heart [id number] TN [id number] Normal sinus rhythm Septal infarct, age undetermined Abnormal ECG
[2016-12-09] MEDS ORDERED: Milk of Magnesia 30ml Ud ORAL PRN (18:00)
[2016-12-09 19:55] VITALS: BP 120/74
[2016-12-09] MEDS: TraZODone 100mg tab ORAL SCH (20:18)
[2016-12-09 23:57] VITALS: BP 106/61
--- NOTE | 2016-12-10 | Progress Note ---
DATE: 12/09/2016 CARDIOLOGY PROGRESS NOTE SUBJECTIVE: The patient still has headache with dizziness. She ambulated today without assist. Monitored rhythm sinus, sinus bradycardia, no pauses. Heart rate in the 50s and 60s. OBJECTIVE: VITAL SIGNS: Blood pressure 126/73, pulse 55, respirations 18, and afebrile. HEENT: Conjunctivae are pink. Oropharynx clear. NECK: Supple. LUNGS: Clear. CARDIAC: Regular rythm and rate. Normal S1 and S2 with a fourth heart sound. ABDOMEN: Soft and nontender. EXTREMITIES: No edema. IMPRESSION: 1. Recurring falls likely due to bradyarrhythmia, due to medication improved now off diltiazem. 2. Paroxysmal atrial fibrillation maintaining sinus rhythm. 3. Transgender from male to female. 4. History of hypertension. 5. Post concussion headache. 6. Laboratories notable for TSH of 1.9. Echocardiogram with normal ejection fraction, and no significant valvular disease. PLAN: 1. Decrease metoprolol to half current dose. 2. Remain off diltiazem. 3. Pradaxa for cardioembolic prophylaxis. 4. Fall precautions. 5. Outpatient physical and occupational therapy. 6. Stable from cardiovascular standpoint for outpatient care. Anthony Munguia M.D. DR: GRACE JOB#: [id number] CC:
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
[2016-12-10 03:55] VITALS: BP 113/78
[2016-12-10 08:00] VITALS: BP 119/70
--- NOTE | 2016-12-10 08:34 | General Progress Note ---
Assessment/Plan Assessment/Plan IMPRESSION: 1. Status post fall with head injury. 2. Ataxic gait. 3. Chronic opioid dependence. 4. Hypertension. 5. Atrial fibrillation per history paroxysmal. 6. amnestic episodes 7. possible toxic metabolic encephalopathy PLAN care as is EEG results pending per cards, abby burton family wants transfer to [facility] under the Care of Dr. Arreaga, he is aware and will arrange PT likely stable for dc by am impression, plan, and exam edited and reviewed in detail care discussed with RN Subjective Allergies: Coded Allergies: PENICILLINS (Verified Allergy, Mild, Rash, 12/08/16) NIACIN (Verified Allergy, Unknown, 12/08/16) Subjective neuro and cards noted findings noted appreciate follow up Objective Last 24 Hour Vital Signs Date Time Temp Pulse Resp B/P Pulse Ox O2 Delivery O2 Flow Rate FiO2 12/10/16 04:00 54 12/10/16 03:55 98.2 55 19 113/78 98 Room Air 12/10/16 00:00 56 12/09/16 23:57 98.5 54 17 106/61 94 Room Air 12/09/16 20:00 53 12/09/16 19:55 98.2 58 19 120/74 95 Room Air 12/09/16 16:00 55 12/09/16 15:29 96.3 55 18 126/73 96 Room Air 12/09/16 11:46 58 12/09/16 11:30 97.3 54 18 136/77 97 Room Air Intake and Output 12/09/16 12/10/16 19:00 07:00 Intake Total 2020 ml 1107 ml Balance 2020 ml 1107 ml Intake Oral 820 ml IV Total 1200 ml 1107 ml # Voids 5 2 Height (Feet): 5 Height (Inches): 7.00 Weight (Pounds): 140 Objective GENERAL: A well-developed female. NAD, wants to go to [facility] HEENT: Negative. Extraocular movements are grossly intact. Oropharynx otherwise clear. NECK: Supple. LUNGS: Otherwise clear. No rhonchi or wheezes. CARDIAC: Normal S1 and S2. Regular rate and rhythm without murmurs, rubs, or gallops. ABDOMEN: Soft, nontender, and nondistended. EXTREMITIES: No cyanosis, clubbing, or edema. NEUROLOGIC: The patient is grossly nonfocal. The patient with unsteady gait. but improved GUERA ANDREWS Dec 10, 2016 08:34
[2016-12-10] MEDS ORDERED: Metoprolol Succinate XL 25mg tab ORAL SCH (09:00)
[2016-12-10] MEDS ORDERED: Estradiol Vaginal Cr 42.5 Gm Tube VAGIN SCH (09:00)
[2016-12-10] MEDS: Metamucil Pkt ORAL SCH (09:15)
[2016-12-10] MEDS: Norco 5mg/325mg tab ORAL PRN ×2 (09:15→10:33)
[2016-12-10] MEDS: Multivitamin w/Minerals tab ORAL SCH (09:15)
[2016-12-10] MEDS: Bisacodyl EC 5mg tab ORAL SCH (09:17)
[2016-12-10] MEDS: Tums 500mg ORAL SCH (09:17)
[2016-12-10] MEDS: Topiramate 25mg tab ORAL SCH (09:17)
[2016-12-10] MEDS: OLANZapine 2.5mg tab ORAL PRN (09:17)
[2016-12-10] MEDS: Dabigatran 150mg cap ORAL SCH (09:18)
[2016-12-10] MEDS: clonazePAM 0.5mg tab ORAL SCH (09:18)
[2016-12-10] MEDS: DULoxetine 30mg cap ORAL SCH (09:18)
[2016-12-10] MEDS: Cosopt Opth Soln 10 mL Btl BOTH EYES SCH (09:29)
[2016-12-10 12:00] VITALS: BP 141/83
--- NOTE | 2016-12-10 12:45 | Neurology Progress Note ---
Interim History Interim History ROS Limited/Unobtainable: No Complaints: weakness Events: stable Objective Physical Exam Last Vital Signs Date Time Temp Pulse Resp B/P Pulse Ox O2 Delivery O2 Flow Rate FiO2 12/10/16 12:00 98.1 52 22 141/83 97 Room Air General: well developed, no acute distress, other - slim Head: normocophalic, atraumatic Neck: no rigidity Neurologic Exam Mental Status: awake, alert, normal cognition, normal recent memory, normal remote memory, other - depressed Speech: normal speech, no dysarthia Language: normal language, no aphasia Cranial Nerve II: fundus normal, visual blunt, no papilledema Cranial Nerves III, IV, : PERRLA, EOMI, pupils Cranial Nerve V: normal facial sensations, temporales function normal, masseters function normal, pterygoids function normal Cranial Nerve VII: no facial asymmetry, normal facial expressions Cranial Nerve VIII: normal hearing, no nystagmus Cranial Nerve IX: normal palate elevation, gag response Cranial Nerve X: no voice hoarseness Cranial Nerve XII: tongue midline, no tongue atrophy/fasciculations Motor System: normal muscle tone, other - L hand tremor Sensory: normal pinprick Coordination: normal finger to nose bilaterally Deep Tendon Reflexes: 1+ ankle (L), 1+ ankle (R), 1+ bicep (L), 1+ bicep (R), 1 + brachioradialis (L), 1+ brachioradialis (R), 1+ knee (L), 1+ knee (R), 1+ tricep (L), 1+ tricep (R) Reflexes: mute plantar (L), mute plantar (R) Impression/Recommendations Problems: (1) Transient global amnesia (2) Closed head injury (3) Depression Recommendations EEg nl cont present rx psych eval ok transfer to [facility] per family request LALO ALEXANDER Dec 10, 2016 12:45
[2016-12-10] MEDS ORDERED: METOPROLOL SUCC25 MG ORAL ×2 (13:29→13:33)
--- NOTE | 2016-12-10 17:15 | Electroencephalogram ---
DATE OF PROCEDURE: 12/09/2016 REFERRING PHYSICIAN: Elias Clinton M.D. HISTORY: This is a 66-year-old female with episodes of transient global amnesia, EEG was requested to assess presence of epileptogenic activity. Current treatment includes Zyprexa, Topamax, Klonopin, and [place]. TECHNIQUE: EEG was done using 18 electrodes placed scalp to scalp, scalp to ear montages according to 10/20 International System. During recording, the patient described as awake or drowsy, but fairly cooperative. Activation procedures including photic stimulation, eye opening, and eye closure. On most wakeful portions of recording, background activity consisted of a low to medium voltage, well-regulated 8 cycles per second, alpha activity with good response to physiological stimulation. Photic stimulation from 3 to 32 hertz was done, result no significant changes. Small epochs of generalized slowing corresponding to sleep stages. No asymmetry from [id number]. No spike or wave activities noted. IMPRESSION: Normal awake stage 1 sleep electroencephalogram with photic stimulation. COMMENT: Absence of paroxysmal event on a single recording does not rule out seizure disorder. Kevin Rogers M.D. DR: ELIJAH JOB#: [id number] CC:
--- NOTE | 2016-12-10 19:45 | Progress Note ---
DATE: 12/10/2016 CARDIOLOGY PROGRESS NOTE SUBJECTIVE: The patient has not had any bradycardic episodes. Heart rate is in the 50s. No pauses. She denies dizziness, chest pain, or shortness of breath. The patient is on low-dose beta-iker and off diltiazem. OBJECTIVE: VITAL SIGNS: Blood pressure 141/83, pulse 54, respirations 22, and afebrile. HEENT: Oropharynx clear. NECK: Supple. LUNGS: Clear. CARDIAC: Regular rhythm. Slow rate. Normal S1 and S2. No murmur. ABDOMEN: Soft. EXTREMITIES: No edema. IMPRESSION: 1. Recurring falls, likely bradyarrhythmic in etiology and medication induced. 2. Paroxysmal atrial fibrillation, now in sinus rhythm. 3. Sinus bradycardia with arrhythmia, resolving with medication adjustment. 4. Hypertensive heart disease with controlled blood pressure. PLAN: 1. Continue low-dose beta-iker. 2. Observe as outpatient. 3. Fall precautions. 4. Maintain Pradaxa for cardioembolic prophylaxis. 5. Avoid tight blood pressure control. 6. Maintain adequate hydration. 7. Discussed with the patient in detail. 8. No role for additional hospitalization at this time. Anthony Munguia M.D. DR: ANTONIO JOB#: [id number] CC:
--- NOTE | 2016-12-10 20:01 | General Progress Note ---
Assessment/Plan Status: stable Assessment/Plan mdd. benzo dependence the pt wants to cont with [facility], since they prescribe Klonopin to her over there Subjective Constitutional: Reports: malaise, weakness Neurologic/Psychiatric: Reports: anxiety, depressed, emotional problems Allergies: Coded Allergies: PENICILLINS (Verified Allergy, Mild, Rash, 12/08/16) NIACIN (Verified Allergy, Unknown, 12/08/16) Objective Last 24 Hour Vital Signs Date Time Temp Pulse Resp B/P Pulse Ox O2 Delivery O2 Flow Rate FiO2 12/10/16 12:00 98.1 52 22 141/83 97 Room Air 12/10/16 12:00 54 12/10/16 10:14 97.0 12/10/16 09:17 60 119/70 12/10/16 08:00 66 12/10/16 08:00 97.0 60 18 119/70 98 Room Air 12/10/16 04:00 54 12/10/16 03:55 98.2 55 19 113/78 98 Room Air 12/10/16 00:00 56 12/09/16 23:57 98.5 54 17 106/61 94 Room Air 12/09/16 20:00 53 Intake and Output 12/09/16 12/10/16 19:00 07:00 Intake Total 2020 ml 1107 ml Balance 2020 ml 1107 ml Intake Oral 820 ml IV Total 1200 ml 1107 ml # Voids 5 2 Height (Feet): 5 Height (Inches): 7.00 Weight (Pounds): 140 General Appearance: no apparent distress, alert, thin Neurologic: alert, oriented x 3, responsive, depressed affect Yohana La M.D. Dec 10, 2016 20:01
--- NOTE | 2016-12-11 09:36 | Discharge Summary ---
Discharge Summary Hospital Course Date of Admission Dec 07, 2016 at 23:26 Date of Discharge Dec 10, 2016 at 13:50 Admitting Diagnosis CLOSED HEAD INJURY HPI Seda Sharma is a 66 year old female who was admitted on Dec 07, 2016 at 23: 26 for Closed Head Injury Hospital Course dc summary #[id number] Discharge Medications Continued Medications: Atorvastatin Calcium* (Atorvastatin Calcium*) 20 Mg Tablet 20 MG ORAL BEDTIME, TAB Azelastine/Fluticasone (Dymista Nasal [place]) 23 Gm [place].pump 23 GM NS daily Calcium Carbonate (Calcium) 600 Mg Tablet 600 MG PO bid, TAB Clomipramine Hcl (Clomipramine Hcl) 50 Mg Capsule 50 MG PO bid, CAP Dabigatran Etexilate Mesylate* (Pradaxa*) 150 Mg Capsule 150 MG ORAL bid, CAP Dorzolamide Hcl/Timolol Maleat (Cosopt Eye Drops) 10 Ml Drops 10 ML OP bid, ML Duloxetine Hcl* (Cymbalta*) 30 Mg Capsule.dr 30 MG ORAL BID, CAP Estradiol* (Estrace*) 42.5 Gm Cream.appl 1 APPLIC PV DAILY, GM Latanoprost* (Xalatan*) 2.5 Ml Drops 1 DROP BOTH EYES BEDTIME, ML 0 Refills Melatonin (Melatonin) 1 Mg Tablet.er 2 MG PO BEDTIME, TAB Metoprolol Succinate* (Metoprolol Succinate*) 25 Mg Tab.er.24h 25 MG ORAL DAILY, TAB Mirtazapine* (Remeron*) 30 Mg Tablet 30 MG ORAL BEDTIME, TAB Multivitamin With Minerals (Multiple Vitamin) 1 Each Tablet 1 EACH PO BID, TAB Olanzapine* (Zyprexa*) 2.5 Mg Tablet 2.5 MG ORAL Q6HR PRN for For Anxiety, #30 TAB 0 Refills [place]-3 Acid Ethyl Esters (Lovaza) 1 Gm Capsule 2 GM ORAL BID, #30 CAP 0 Refills Paroxetine Hcl* (Paxil*) 20 Mg Tablet 10 MG ORAL DAILY, TAB 0 Refills Psyllium (Metamucil Powder) 575 Gm Powder 1 PKT ORAL BID, PKT Topiramate* (Topamax*) 25 Mg Tablet 50 MG ORAL TWICE A DAY, #60 TAB 0 Refills Ubidecarenone (Co Q-10) 100 Mg Capsule 100 MG PO DAILY, CAP Ubiquinol (Ubiquinol) 100 Mg Capsule 100 MG PO DAILY, CAP [hydrozine] () 50 MG PO daily [xalantan] () 1 DROP BOTH EYES daily Discontinued Medications: Diltiazem Hcl* (Cardizem*) 60 Mg Tablet 30 MG ORAL THREE TIMES A DAY, TAB Metoprolol Succinate* (Toprol Xl*) 50 Mg Tab.er.24h 50 MG ORAL DAILY, TAB Metoprolol Succinate* (Metoprolol Succinate*) 25 Mg Tab.er.24h 12.5 MG ORAL DAILY, TAB Discharge Condition Upon Discharge: stable Discharge Disposition Patient was discharged to Home (01) Discharge Diagnoses: Discharge Instructions Discharge Instructions Special Instructions I have been assigned to complete a D/C Summary on this account. I was not involved in the patient management Whitley Littlejohn NP ([place]) Dec 11, 2016 09:36
--- NOTE | 2016-12-12 04:45 | Discharge Summary 2 SIG ---
DATE OF ADMISSION: 12/07/2016 DATE OF DISCHARGE: 12/10/2016 REASON FOR ADMISSION: 66-year-old female, presented with unsteadiness and weakness. She reported fall two days ago. The patient with recurrent falls. During the last fall, she hit her chin and was evaluated at [facility]. CT and MRI of the head were done. Zyprexa added to her medication regimen. Patient was given ice pack and tranquilizer, and subsequently was sent home. 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 The patient was also chronically taking Percocet and [place]. The patient was taking Pradaxa for atrial fibrillation and had episodes of rapid atrial fibrillation as per patient. In the emergency department, telemetry showed normal sinus rhythm. The patient denied palpitations, chest pain, or shortness of breath. The patient reported transgender post male to female surgery, major depression after the surgery, and seen in outpatient psychiatric at [facility]. Vital signs were stable. Blood pressure was on the low side -91/54. No leukocytosis. Stable hemoglobin and hematocrit. Urinalysis revealed few bacteria, +1 leukocyte esterase, negative for nitrite. Stable electrolytes, glucose -81. Troponin negative. CK -50. Urine tox screen was negative, even though it was expected to be positive due to the chronic use of opiates and benzodiazepine. Chest x-ray revealed no acute disease. CT of the head revealed no acute intracranial bleeding, mass effect, or edema. The patient was admitted for further management. ADMITTING DIAGNOSES: 1. Status post fall. 2. Closed head injury. 3. Ataxia. 4. Chronic opioid use. 5. Hypertension. 6. Paroxysmal atrial fibrillation. HOSPITAL COURSE: The patient was admitted to telemetry floor. Cardiology, Neurology, and Psychiatric evaluations were requested. Per director motion picture, the patient's recurrent falls likely related to bradyarrhythmia, probably induced by medication. Diltiazem was discontinued. Metoprolol dose titrated. The patient maintained sinus rhythm on telemetry. Blood pressure was stable. Cardioembolic prophylaxis with Pradaxa and statin were continued. TSH was within normal limits. Blood pressure was controlled with current regimen of low dose of beta iker. Echocardiogram revealed ejection fraction of 60% to 65%, right ventricular systolic pressure of 33. Neurologist recommended to avoid tight control and maintain adequate hydration. Neurologist diagnosed the patient with global transient amnesia. EEG results were normal. Fall precautions were maintained. The patient was working with physical and occupational therapists. Judicious pain management was employed. Patient was recommended to start seeing pain specialist as outpatient. Psychiatrist seen and evaluated the patient, and diagnosed her with major depressive disorder. The patient was reluctant to be off benzodiazepine at that time. She expressed desire to psychiatrist to go to intensive outpatient program at [facility] as outpatient when medically cleared. The patient clinically improved. Initial postconcussion headache stopped. The patient was stable for discharge. DISCHARGE DIAGNOSES: 1. Recurrent falls, likely secondary to bradyarrhythmia induced by medication (i.e. diltiazem). 2. Closed head injury. 3. Global transient amnesia. 4. Postconcussion headache. 5. Paroxysmal atrial fibrillation. 6. Hypertensive heart disease. 7. Major depressive disorder. 8. Opiate and benzodiazepine dependency. 9. History of tardive dyskinesia. 10. Hyperlipidemia. 11. 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 DISCHARGE MEDICATIONS: See medication reconciliation list. DISCHARGE INSTRUCTIONS: The patient was discharged home. Follow up with primary medical doctor. Recommended pain specialist consultation. Elias Clinton M.D. I have been assigned to dictate discharge summary on this account and I was not involved in the patient's management. Whitley Geigeradrian) N.PChelsey DR: SEFERINO JOB#: [id number] CC: LEVON
== END 2016-12-10 13:50 | disposition home or self-care (01) | DRG 913 ==
LOC: EDBD 18:27 → EMR 18:39 → 2E 23:26 → EDBEDREQ 12-08 00:52 → 2E 12-08 01:20
DX: S09.90XA Unspecified injury of head, initial encounter (principal); G92 Toxic encephalopathy; I48.0 Paroxysmal atrial fibrillation; F11.20 Opioid dependence, uncomplicated; I11.9 Hypertensive heart disease without heart failure; F32.9 Major depressive disorder, single episode, unspecified; G45.4 Transient global amnesia; E78.5 Hyperlipidemia, unspecified; W19.XXXA Unspecified fall, initial encounter; G44.319 Acute post-traumatic headache, not intractable; I49.8 Other specified cardiac arrhythmias; Z79.01 Long term (current) use of anticoagulants; T14.8 Other injury of unspecified body region; Z91.81 History of falling; R26.0 Ataxic gait; F41.9 Anxiety disorder, unspecified; Z88.0 Allergy status to penicillin; Z88.8 Allergy status to other drugs, medicaments and biological substances; H40.9 Unspecified glaucoma; Z87.891 Personal history of nicotine dependence
CPT/HCPCS: 36415; 70450; 71010; 80053; 80300; 80329; 81003; 82550; 83880; 84443; 84484; 85025; 85610; 85730; 93005; 93306; 95819; 96360; 96361; 96367

== ENCOUNTER 2017-09-05 08:45 | Outpatient (CLI) | payer MEDICARE, OTHER ==
[~2017-09-05 08:45] MED LIST changes: +ATORVASTATIN CA20 MG ORAL; +CYMBALTA30 MG ORAL; +ESTRACE42.5 GM PV; +FIBER-CAPS625 MG PO; +KLONOPIN0.5 MG ORAL; +LATANOPROST2.5 ML BOTH EYES; +MELATONIN1 M2 PO; +METOPROLOL SUCC25 MG ORAL; +TOPIRAMATE25 MG ORAL; +TOPROL XL50 MG ORAL; +UBIQUINOL100 MG PO; +ZYPREXA2.5 MG ORAL
== END 2017-09-05 10:45 | disposition home or self-care (01) ==
LOC: ECT 08:45
DX: F33.2 Major depressive disorder, recurrent severe without psychotic features (principal); F60.9 Personality disorder, unspecified; Z79.01 Long term (current) use of anticoagulants

== ENCOUNTER 2017-09-11 07:07 | Outpatient (RCR) | payer MEDICARE, OTHER ==
[~2017-09-11] VITALS: Ht 170.2 cm; Wt 66.7 kg
[2017-09-11] MEDS ORDERED: Methohexital Sodium Syr 100mg/10ml IVP ONE (07:08)
[2017-09-11] MEDS ORDERED: Midazolam 2mg/2ml Inj ONE (07:08)
[2017-09-11] MEDS ORDERED: NS 500ML ONE (07:08)
[2017-09-11] MEDS ORDERED: Succinylcholine 20mg/ml 10ml vial ONE (07:08)
[2017-09-11 11:12] VITALS: BP 165/122
[2017-09-11] MEDS ORDERED: Atropine Sulfate 0.4mg/ml inj IVP PRN (11:38)
[2017-09-11] MEDS ORDERED: Sodium Chloride 500ML 500 ML IV ONE (11:38)
[2017-09-11 11:40] VITALS: BP 148/67
[2017-09-11 11:45] VITALS: BP 141/58
[2017-09-11 11:50] VITALS: BP 141/58
[2017-09-11 11:55] VITALS: BP 136/60
[2017-09-11 13:15] VITALS: BP 165/122
[2017-09-13] MEDS ORDERED: Midazolam 2mg/2ml Inj ONE (07:00)
[2017-09-13] MEDS ORDERED: Succinylcholine 20mg/ml 10ml vial ONE (07:00)
[2017-09-13] MEDS ORDERED: Methohexital Sodium Syr 100mg/10ml IVP ONE (07:00)
[2017-09-13] MEDS ORDERED: NS 500ML ONE (07:00)
[2017-09-13 09:59] VITALS: BP 173/91
[2017-09-13] MEDS ORDERED: Sodium Chloride 500ML 500 ML IV ONE (10:19)
[2017-09-13 10:20] VITALS: BP 183/70
[2017-09-13 10:25] VITALS: BP 167/69
[2017-09-13 10:30] VITALS: BP 156/71
[2017-09-13 10:35] VITALS: BP 155/66
[2017-09-16] MEDS ORDERED: Methohexital Sodium Syr 100mg/10ml IVP ONE (07:00)
[2017-09-16] MEDS ORDERED: Midazolam 2mg/2ml Inj ONE (07:00)
[2017-09-16] MEDS ORDERED: NS 500ML ONE (07:00)
[2017-09-16] MEDS ORDERED: Succinylcholine 20mg/ml 10ml vial ONE (07:00)
[2017-09-16 09:54] VITALS: BP 142/83
[2017-09-16] MEDS ORDERED: Sodium Chloride 500ML 500 ML IV ONE (10:16)
[2017-09-16 10:20] VITALS: BP 128/52
[2017-09-16 10:25] VITALS: BP 134/54
[2017-09-16 10:30] VITALS: BP 127/61
[2017-09-16 10:35] VITALS: BP 141/47
[2017-09-18] MEDS ORDERED: Succinylcholine 20mg/ml 10ml vial ONE (08:00)
[2017-09-18] MEDS ORDERED: NS 500ML ONE (08:00)
[2017-09-18] MEDS ORDERED: Midazolam 2mg/2ml Inj ONE (08:00)
[2017-09-18] MEDS ORDERED: Methohexital Sodium Syr 100mg/10ml IVP ONE (08:00)
[2017-09-18 11:01] VITALS: BP 141/67
[2017-09-18 11:23] VITALS: BP 134/62
[2017-09-18] MEDS ORDERED: Sodium Chloride 500ML 500 ML IV ONE (11:23)
[2017-09-18] MEDS ORDERED: Atropine Sulfate 0.4mg/ml inj IVP PRN (11:23)
[2017-09-18 11:28] VITALS: BP 126/58
[2017-09-18 11:33] VITALS: BP 116/59
[2017-09-18 11:38] VITALS: BP 124/66
[2017-09-20] MEDS ORDERED: NS 500ML ONE (08:00)
[2017-09-20] MEDS ORDERED: Methohexital Sodium Syr 100mg/10ml IVP ONE (08:00)
[2017-09-20] MEDS ORDERED: Midazolam 2mg/2ml Inj ONE (08:00)
[2017-09-20] MEDS ORDERED: Succinylcholine 20mg/ml 10ml vial ONE (08:00)
[2017-09-20] MEDS ORDERED: Ketorolac 60mg Inj ONE (08:00)
[2017-09-20 09:06] VITALS: BP 118/79
[2017-09-20] MEDS ORDERED: Sodium Chloride 500ML 500 ML IV ONE (09:22)
[2017-09-20 09:25] VITALS: BP 145/59
[2017-09-20 09:30] VITALS: BP 142/65
[2017-09-20 09:35] VITALS: BP 146/59
[2017-09-20 09:40] VITALS: BP 135/58
[2017-09-20 09:45] VITALS: BP 135/57
[2017-09-25] MEDS ORDERED: Succinylcholine 20mg/ml 10ml vial ONE (07:00)
[2017-09-25] MEDS ORDERED: Methohexital Sodium Syr 100mg/10ml IVP ONE (07:00)
[2017-09-25] MEDS ORDERED: Ketorolac 60mg Inj ONE (07:00)
[2017-09-25] MEDS ORDERED: NS 500ML ONE (07:00)
[2017-09-25] MEDS ORDERED: Midazolam 2mg/2ml Inj ONE (07:00)
[2017-09-25 10:58] VITALS: BP 187/88
[2017-09-25] MEDS ORDERED: Sodium Chloride 500ML 500 ML IV ONE (11:23)
[2017-09-25 11:25] VITALS: BP 144/59
[2017-09-25 11:30] VITALS: BP 142/51
[2017-09-25 11:35] VITALS: BP 132/62
[2017-09-25 11:40] VITALS: BP 142/60
== END 2017-09-26 | disposition home or self-care (01) ==
LOC: ECT 07:07
DX: F33.2 Major depressive disorder, recurrent severe without psychotic features (principal)
CPT/HCPCS: 90870; J0330; J2250; J7040

== ENCOUNTER 2017-09-27 07:49 | Outpatient (RCR) | payer MEDICARE, OTHER ==
[~2017-09-27] VITALS: Ht 170.2 cm; Wt 66.7 kg
[2017-09-27] MEDS ORDERED: Methohexital Sodium Syr 100mg/10ml IVP ONE (07:50)
[2017-09-27] MEDS ORDERED: Midazolam 2mg/2ml Inj ONE (07:50)
[2017-09-27] MEDS ORDERED: Ketorolac 60mg Inj ONE (07:50)
[2017-09-27] MEDS ORDERED: Succinylcholine 20mg/ml 10ml vial ONE (07:50)
[2017-09-27] MEDS ORDERED: NS 500ML ONE (07:50)
[2017-09-27 09:53] VITALS: BP 163/66
[2017-09-27] MEDS ORDERED: Sodium Chloride 500ML 500 ML IV ONE (10:11)
[2017-09-27 10:15] VITALS: BP 137/60
[2017-09-27 10:20] VITALS: BP 130/57
[2017-09-27 10:25] VITALS: BP 132/57
[2017-09-27 10:30] VITALS: BP 132/57
[2017-09-30] MEDS ORDERED: Succinylcholine 20mg/ml 10ml vial ONE (07:00)
[2017-09-30] MEDS ORDERED: Ketorolac 60mg Inj ONE (07:00)
[2017-09-30] MEDS ORDERED: Methohexital Sodium Syr 100mg/10ml IVP ONE (07:00)
[2017-09-30] MEDS ORDERED: NS 500ML ONE (07:00)
[2017-09-30] MEDS ORDERED: Midazolam 2mg/2ml Inj ONE (07:00)
[2017-09-30] MEDS ORDERED: Sodium Chloride 500ML 500 ML IV ONE (10:15)
[2017-09-30 11:18] VITALS: BP 172/68
[2017-09-30 11:35] VITALS: BP 155/65
[2017-09-30 11:40] VITALS: BP 154/63
[2017-09-30 11:45] VITALS: BP 143/59
[2017-09-30 11:50] VITALS: BP 139/55
[2017-10-02] MEDS ORDERED: NS 500ML ONE (07:00)
[2017-10-02] MEDS ORDERED: Methohexital Sodium Syr 100mg/10ml IVP ONE (07:00)
[2017-10-02] MEDS ORDERED: Ketorolac 60mg Inj ONE (07:00)
[2017-10-02] MEDS ORDERED: Succinylcholine 20mg/ml 10ml vial ONE (07:00)
[2017-10-02] MEDS ORDERED: Midazolam 2mg/2ml Inj ONE (07:00)
[2017-10-02 09:34] VITALS: BP 176/93
[2017-10-02] MEDS ORDERED: Sodium Chloride 500ML 500 ML IV ONE (09:48)
[2017-10-02 09:50] VITALS: BP 151/67
[2017-10-02 09:55] VITALS: BP 137/59
[2017-10-02 10:00] VITALS: BP 137/59
[2017-10-02 10:05] VITALS: BP 141/61
[2017-10-02 10:10] VITALS: BP 131/66
== END 2017-10-26 | disposition home or self-care (01) ==
LOC: ECT 07:49
DX: F33.2 Major depressive disorder, recurrent severe without psychotic features (principal)
CPT/HCPCS: 90870; J0330; J2250; J7040